=== PATIENT | male | born 1990 | race Caucasian/White ===

== ENCOUNTER 2017-09-20 10:19 | Emergency (ER) | payer MEDICAID, MEDICARE ==
--- NOTE | 2017-09-20 12:04 | EDM.PDOCBH ---
ED HPI GENERAL MEDICAL PROBLEM - General Chief Complaint: Behavioral/Psych Stated Complaint: PSYCH EVAL Time Seen by Provider: 09/20/17 11:41 Source of Information: Reports: Patient History Limitations: Reports: No Limitations - History of Present Illness INITIAL COMMENTS - FREE TEXT/NARRATIVE: 27-year-old male is brought in by police department for psychiatric eval. Reportedly the patient has a court order to be seen by a psychiatrist today. This was filed in [place], however, he is a resident of [facility]. Order states he needs to see his psychiatrist today. He was brought to [facility] however they do not have a psychiatrist auto inspection specialist therefore they brought him here. patient is thought blocking and is not forthcoming with information. States he is originally from [place]. He is denying current pain at this time. States he is eating and drinking. Reports he did eat this morning. Denies any illicit drug use or alcohol use. - Related Data Allergies Allergy/AdvReac Type Severity Reaction Status Date / Time No Known Allergies Allergy Verified 09/20/17 10:37 Home Meds: Home Meds Benztropine [Cogentin] 0.5 mg PO BID 09/20/17 [History] Citalopram [Citalopram HBr] 20 mg PO DAILY 09/20/17 [History] Loratadine 10 mg PO DAILY 09/20/17 [History] Omeprazole 20 mg PO BID 09/20/17 [History] risperiDONE 3 mg PO BID 09/20/17 [History] Past Medical History Other Psychiatric History: unable to obtain, patient will not participate in questioning Social & Family History - Family History Family Medical History: Unobtainable - Tobacco Use Smoking Status *Q: Unknown Ever Smoked - Caffeine Use Caffeine Use: Reports: Other Other Caffeine Use: unknown - Recreational Drug Use Other Recreational Drug Type: unknown ED ROS GENERAL - Review of Systems Review Of Systems: Unable To Obtain ED EXAM, BEHAVIORAL HEALTH - Physical Exam Exam: See Below Exam Limited By: No Limitations General Appearance: Alert, WD/WN, No Apparent Distress Respiratory/Chest: No Respiratory Distress, Lungs Clear, Normal Breath Sounds Cardiovascular: Normal Peripheral Pulses, Regular Rate, Rhythm, No Murmur GI/Abdominal: Soft, Non-Tender Neurological: Alert Psychiatric: Flat Affect, Non-Communicative, Poor Eye Contact, Paranoid Thoughts Skin Exam: Warm, Dry, Normal color COURSE, BEHAVIORAL HEALTH COMP - Course Vital Signs: Last Vital Signs Temp 36.8 C 09/20/17 10:30 Pulse 99 09/20/17 10:30 Resp 18 09/20/17 10:30 BP 98/69 09/20/17 10:30 Pulse Ox 99 09/20/17 10:30 Orders, Labs, Meds: Active Orders 24 hr Category Date Time Status ACETAMINOPHEN [CHEM] Stat Lab 09/20/17 11:57 Ordered CBC WITH AUTO DIFF [HEME] Stat Lab 09/20/17 11:57 Ordered COMPREHENSIVE METABOLIC PN,CMP [CHEM] Stat Lab 09/20/17 11:57 Ordered DRUG SCREEN, URINE [URCHEM] Stat Lab 09/20/17 11:58 Ordered ETHANOL BLOOD MEDICAL [CHEM] Stat Lab 09/20/17 11:57 Ordered SALICYLATE [CHEM] Stat Lab 09/20/17 11:58 Ordered TSH [CHEM] Stat Lab 09/20/17 11:57 Ordered UA W/MICROSCOPIC [URIN] Stat Lab 09/20/17 13:25 Ordered Laboratory Tests 09/20/17 09/20/17 Range/Units 11:58 13:25 Urine Color Light yellow (Yellow) Urine Appearance Clear (Clear) Urine pH 6.0 (5.0-8.0) Ur Specific [place] 1.015 (1.005-1.030) Urine Protein Negative (Negative) Urine Glucose (UA) Negative (Negative) Urine Ketones Negative (Negative) Urine Occult Blood Negative (Negative) Urine Nitrite Negative (Negative) Urine Bilirubin Negative (Negative) Urine Urobilinogen 0.2 (0.2-1.0) Ur Leukocyte Esterase Negative (Negative) Urine RBC Not seen (0-5) /hpf Urine WBC 0-5 (0-5) /hpf Ur Epithelial Cells Not seen (0-5) /hpf Urine Bacteria Few (FEW) /hpf Urine Mucus Few (FEW) /hpf Urine Opiates Screen Negative (NEGATIVE) Ur Buprenorphine Scrn Negative (NEGATIVE) Ur Oxycodone Screen Negative (NEGATIVE) Urine Methadone Screen Negative (NEGATIVE) Ur Propoxyphene Screen Negative (NEGATIVE) Ur Barbiturates Screen Negative (NEGATIVE) Ur Tricyclics Screen Negative (NEGATIVE) Ur Phencyclidine Scrn Negative (NEGATIVE) Ur Amphetamine Screen Negative (NEGATIVE) U Methamphetamines Scrn Negative (NEGATIVE) U Benzodiazepines Scrn Negative (NEGATIVE) U Cocaine Metab Screen Negative (NEGATIVE) U Marijuana (THC) Screen Negative (NEGATIVE) Medications Discontinued Medications Generic Name Dose Route Start Last Admin Trade Name Pal EARLY Reason Stop Dose Admin Diphenhydramine HCl 50 mg 09/20/17 12:30 Benadryl IM 09/20/17 12:31 ONETIME ONE Haloperidol Lactate 5 mg 09/20/17 12:26 Haldol IM 09/20/17 12:27 ONETIME ONE Lorazepam 2 mg 09/20/17 12:26 Ativan IM 09/20/17 12:27 ONETIME ONE Re-Assessment/Re-Exam: 12:03 I did involve social work as a [facility] 1 and a [facility] [address] out of the state [facility] for [facility]. These documents indicate that he needs to be seen by a psychiatrist today but does not necessarily require placement. We will have Dr. Eugene to a [id number] consult with him for a recommendation. 14:33 Plan will be to send the patient to [facility]. He is delusional and is unable to properly care for himself and is therefore a threat to himself. Patient has been screened by [employer]. I discussed The case with Dr. Nguyen at the [facility]. He is agreed to accept the patient. He plan will be he will by [employer]. IM Haldol, Benadryl and Ativan were ordered for the patient, he refused. Patient did give us urine sample but he refused all other labs. [facility] says that this is okay. Medical Clearance: 09/20/17 14:35 Patient has refused blood lab studies. Urine samples do not show any drugs in his system. His physical exam is unremarkable. Vitals are normal. He is medically cleared to go to the [facility]. Discharge vs Psych Eval/Treatment:: 09/20/17 14:36 Plan will be patient will go to the [facility] for inpatient psychiatric care. Dr. Nguyen accepting. Departure - Departure Time of Disposition: 14:37 Disposition: DC/Tfer to Acute Hospital 02 Condition: Fair Clinical Impression: Delusions - Discharge Information Referrals: PCP,None [Primary Care Provider] - Forms: ED Department Discharge Additional Instructions: Plan will be transported the patient by 's department. He will go to the [facility]. Dr. Sanches accepting. - My Orders Last 24 Hours: My Active Orders 09/20/17 11:57 ACETAMINOPHEN [CHEM] Stat CBC WITH AUTO DIFF [HEME] Stat COMPREHENSIVE METABOLIC PN,CMP [CHEM] Stat ETHANOL BLOOD MEDICAL [CHEM] Stat TSH [CHEM] Stat 09/20/17 11:58 DRUG SCREEN, URINE [URCHEM] Stat SALICYLATE [CHEM] Stat 09/20/17 13:25 UA W/MICROSCOPIC [URIN] Stat - Assessment/Plan Last 24 Hours: My Active Orders 09/20/17 11:57 ACETAMINOPHEN [CHEM] Stat CBC WITH AUTO DIFF [HEME] Stat COMPREHENSIVE METABOLIC PN,CMP [CHEM] Stat ETHANOL BLOOD MEDICAL [CHEM] Stat TSH [CHEM] Stat 09/20/17 11:58 DRUG SCREEN, URINE [URCHEM] Stat SALICYLATE [CHEM] Stat 09/20/17 13:25 UA W/MICROSCOPIC [URIN] Stat
[2017-09-20] MEDS ORDERED: LORazepam 2 MG/ML SDV IM ONE (12:26)
[2017-09-20] MEDS ORDERED: Haloperidol Lactate 5 MG/ML SDV IM ONE (12:26)
[2017-09-20] MEDS ORDERED: diphenhydrAMINE 50 MG/ML SDV IM ONE (12:30)
== END 2017-09-20 15:25 ==
LOC: JD.ED 10:19
DX: F22 Delusional disorders (principal); Z79.899 Other long term (current) drug therapy
CPT/HCPCS: 99283; 99285